=== PATIENT | female | born 1960 | race Hispanic/Latino ===

== ENCOUNTER 2017-05-21 18:23 | Emergency (ER) | payer MEDICARE ==
[2017-05-21 18:23] VITALS: BMI 30.4
[2017-05-21 18:27] VITALS: BP 117/83; PULSE 88; RESP 16; TEMP 99.1; O2SAT 99
--- NOTE | 2017-05-21 19:06 | ED PDOC ---
Lower Extremity Pain/Injury Time Seen by Provider: 05/21/17 18:56 Chief Complaint (Nursing): Lower Extremity Problem/Injury Chief Complaint (Provider): Foot pain Additional History Per: Patient Additional Complaint(s): Pt. from [facility] sent [facility] ED for evaluation of "pain in right leg worsened with walking". Pt. admits she fell 5 years ago and her doctor never put a cast on the right leg. Past Medical History Reviewed: Nursing Documentation, Vital Signs Vital Signs: Last Vital Signs Temp 99.1 F 05/21/17 18:23 Pulse 88 05/21/17 18:23 Resp 16 05/21/17 18:23 BP 117/83 05/21/17 18:23 Pulse Ox 99 05/21/17 18:23 - Medical History PMH: Depression, GERD, Paranoia, Schizophrenia, Seizures Denies: Diabetes, Hepatitis, HIV, HTN, Sexually Transmitted Disease - Family History Family History: States: Unknown Family Hx - Home Medications Home Medications: Ambulatory Orders Medication Instructions Recorded Benztropine [Cogentin] 1 mg PO Q12H 07/13/16 Docusate [Colace] 100 mg PO DAILY PRN 07/13/16 Ergocalciferol (Vitamin D2) 50,000 unit PO SAT 07/13/16 [Vitamin D2] Famotidine [Pepcid] 20 mg PO HS 07/13/16 Gabapentin [Neurontin] 300 mg PO BID 07/13/16 Olanzapine [Zyprexa] 5 mg PO HS 07/13/16 Olanzapine [Zyprexa] 20 mg PO HS 07/13/16 Phenytoin Sodium Extended 300 mg PO HS 07/13/16 [Phenytoin Sodium Extended] amLODIPine [Norvasc] 2.5 mg PO DAILY 07/13/16 clonazePAM [Klonopin] 0.5 mg PO HS 07/13/16 clonazePAM [Klonopin] 1 mg PO Q12H 07/13/16 fluPHENAZine [Prolixin] 20 mg PO Q12H 07/13/16 Ibuprofen [Motrin] 600 mg PO Q6 #20 tab 05/21/17 - Allergies Allergies/Adverse Reactions: Allergies Allergy/AdvReac Type Severity Reaction Status Date / Time No Known Allergies Allergy Verified 05/12/16 18:21 Review of Systems ROS Statement: Except As Marked, All Systems Reviewed And Found Negative Musculoskeletal: Positive for: Foot Pain Physical Exam - Reviewed Nursing Documentation Reviewed: Yes Vital Signs Reviewed: Yes - Physical Exam Appears: Positive for: Well, Non-toxic, No Acute Distress Head Exam: Positive for: ATRAUMATIC, NORMAL INSPECTION, NORMOCEPHALIC Skin: Positive for: Normal Color, Warm, DRY Eye Exam: Positive for: EOMI, Normal appearance, PERRL ENT: Positive for: Normal ENT Inspection Neck: Positive for: Normal, Painless ROM Cardiovascular/Chest: Positive for: Regular Rate, Rhythm Respiratory: Positive for: CNT, Normal Breath Sounds Gastrointestinal/Abdominal: Positive for: Normal Exam, Bowel Sounds, Soft Back: Positive for: Normal Inspection Extremity: Positive for: Normal ROM Neurologic/Psych: Positive for: Alert, Oriented - ECG O2 Sat by Pulse Oximetry: 99 Medical Decision Making Medical Decision Making: Motrin Po administered XR: NAD, as read by AUBRIE Pt placed in zainab wrap and surgical shoe by job specification writer. Disposition - Clinical Impression Clinical Impression: Foot pain, Heel spur - Patient ED Disposition Is Patient to be Admitted: No - Disposition Referrals: Podiatry Clinic [Outside] Disposition: Routine/Home Disposition Time: 19:15 Condition: STABLE Prescriptions: Ibuprofen [Motrin] 600 mg PO Q6 #20 tab Instructions: Arthralgia (ED) Forms: [email or web address] (Greenlandic)
--- NOTE | 2017-05-22 14:29 | RAD ---
PROCEDURE: Right Foot Radiographs. HISTORY: Pain. No history of recent/ related trauma provided COMPARISON: None. FINDINGS: BONES: Normal. No fracture. JOINTS: No significant abnormalities. SOFT TISSUES: Normal. OTHER FINDINGS: None. IMPRESSION: No significant or acute findings to account for/ related to the clinical presentation.
== END 2017-05-21 20:38 | disposition home or self-care (01) ==
LOC: H.ER 18:23
DX: M77.31 Calcaneal spur, right foot (principal); M79.671 Pain in right foot

== ENCOUNTER 2017-09-08 17:30 | Emergency (ER) | payer MEDICARE ==
[2017-09-08 17:31] VITALS: BMI 30.4
[2017-09-08 17:36] VITALS: BP 148/107; PULSE 103; RESP 16; TEMP 98.8; O2SAT 99
--- NOTE | 2017-09-08 18:17 | ED PDOC ---
Upper Extremity Pain/Injury Time Seen by Provider: 09/08/17 17:40 Chief Complaint (Nursing): Upper Extremity Problem/Injury Chief Complaint (Provider): Left Arm Pain History Per: Patient History/Exam Limitations: no limitations Onset/Duration Of Symptoms: Days (x1 month) Current Symptoms Are (Timing): Still Present Additional Complaint(s): 57 year old female, with no significant past medical history, who presents to the ED complaining of left arm pain x1 month. Patient states she feels electricity in her hand that radiates up. States she recently saw her PMD who told her theres nothing to do about it. Denies trauma, weakness, numbness, chest pain, shortness of breath, or shoulder pain. PMD: Provider TABATHA Past Medical History Reviewed: Historical Data, Nursing Documentation, Vital Signs Vital Signs: Last Vital Signs Temp 98.8 F 09/08/17 17:34 Pulse 103 H 09/08/17 17:34 Resp 16 09/08/17 17:34 BP 148/107 H 09/08/17 17:34 Pulse Ox 99 09/08/17 17:34 - Medical History PMH: Depression, GERD, Paranoia, Schizophrenia, Seizures Denies: Diabetes, Hepatitis, HIV, HTN, Chronic Kidney Disease, Sexually Transmitted Disease - Surgical History Surgical History: No Surg Hx - Family History Family History: States: Unknown Family Hx - Home Medications Home Medications: Ambulatory Orders Medication Instructions Recorded Benztropine [Cogentin] 1 mg PO Q12H 07/13/16 Docusate [Colace] 100 mg PO DAILY PRN 07/13/16 Ergocalciferol (Vitamin D2) 50,000 unit PO SAT 07/13/16 [Vitamin D2] Famotidine [Pepcid] 20 mg PO HS 07/13/16 Gabapentin [Neurontin] 300 mg PO BID 07/13/16 Olanzapine [Zyprexa] 5 mg PO HS 07/13/16 Olanzapine [Zyprexa] 20 mg PO HS 07/13/16 Phenytoin Sodium Extended 300 mg PO HS 07/13/16 [Phenytoin Sodium Extended] amLODIPine [Norvasc] 2.5 mg PO DAILY 07/13/16 clonazePAM [Klonopin] 0.5 mg PO HS 07/13/16 clonazePAM [Klonopin] 1 mg PO Q12H 11/11/16 fluPHENAZine [Prolixin] 20 mg PO Q12H 07/13/16 Ibuprofen [Motrin] 600 mg PO Q6 #20 tab 05/21/17 Naproxen [Naprosyn] 500 mg PO BID PRN #15 tablet 09/08/17 - Allergies Allergies/Adverse Reactions: Allergies Allergy/AdvReac Type Severity Reaction Status Date / Time No Known Allergies Allergy Verified 09/08/17 17:34 Review of Systems ROS Statement: Except As Marked, All Systems Reviewed And Found Negative Cardiovascular: Negative for: Chest Pain Respiratory: Negative for: Shortness of Breath Musculoskeletal: Positive for: Arm Pain (left). Negative for: Shoulder Pain Neurological: Negative for: Weakness, Numbness Physical Exam - Reviewed Nursing Documentation Reviewed: Yes Vital Signs Reviewed: Yes - Physical Exam Appears: Positive for: Well, Non-toxic, No Acute Distress Head Exam: Positive for: ATRAUMATIC, NORMAL INSPECTION, NORMOCEPHALIC Skin: Positive for: Normal Color, Warm, Dry. Negative for: Rash Eye Exam: Positive for: EOMI, Normal appearance, PERRL Neck: Positive for: Normal, Painless ROM, Supple Cardiovascular/Chest: Positive for: Regular Rate, Rhythm. Negative for: Murmur Respiratory: Positive for: Normal Breath Sounds. Negative for: Respiratory Distress Back: Positive for: Normal Inspection. Negative for: L CVA Tenderness, R CVA Tenderness, Vertebral Tenderness Extremity: Positive for: Normal ROM, Tenderness (Mid upper arm down to hand), Capillary Refill (<2 sec), Other (Left arm has no erythema, no induration, no lesions). Negative for: Deformity, Swelling (left arm) Neurologic/Psych: Positive for: Alert, Oriented. Negative for: Motor/Sensory Deficits - ECG O2 Sat by Pulse Oximetry: 99 (RA) Pulse Ox Interpretation: Normal Medical Decision Making Medical Decision Making: Time: 17:43 Initial Impression: Chronic arm pain Plan: --EKG --Naproxen 500 mg PO --Reevaluation --Upon review of old notes, patient was here 07/13/16 for the exact same symptoms. Scribe Attestation: Documented by Carmelo Philip, acting as a scribe for Joselin Webster MD. Provider Scribe Attestation: All medical record entries made by the Scribe were at my direction and personally dictated by me. I have reviewed the chart and agree that the record accurately reflects my personal performance of the history, physical exam, medical decision making, and the department course for this patient. I have also personally directed, reviewed, and agree with the discharge instructions and disposition. Disposition - Clinical Impression Clinical Impression: Chronic arm pain - Disposition Referrals: Dolly Newsome MD [Family Provider] - Disposition: Routine/Home Disposition Time: 20:09 Condition: STABLE Prescriptions: Naproxen [Naprosyn] 500 mg PO BID PRN #15 tablet PRN Reason: Pain, Moderate (4-7) Instructions: Arm Pain (ED) Forms: [employer] (Hungarian)
[2017-09-08] MEDS ORDERED: Naproxen 500 MG TAB PO STA (18:22)
[2017-09-08] MEDS ORDERED: Naproxen 500 MG TAB PO ONE (19:30)
--- NOTE | 2017-09-09 08:16 | CARD ---
APPROVED REPORT EKG Measurement Heart [id number] <Conclusion> Normal sinus rhythm Normal ECG
== END 2017-09-08 20:51 | disposition home or self-care (01) ==
LOC: H.ER 17:30
DX: M79.602 Pain in left arm (principal); F20.9 Schizophrenia, unspecified; F32.9 Major depressive disorder, single episode, unspecified; K21.9 Gastro-esophageal reflux disease without esophagitis

== ENCOUNTER 2017-09-14 23:31 | Emergency (ER) | payer MEDICARE ==
[2017-09-14 23:32] VITALS: BMI 30.4
[2017-09-15 00:03] VITALS: RESP 18; TEMP 98.3
--- NOTE | 2017-09-15 02:16 | ED PDOC ---
HPI: Psych/Substance Abuse Time Seen by Provider: 09/14/17 23:55 Chief Complaint (Nursing): Psychiatric Evaluation Chief Complaint (Provider): Crisis Evaluation History Per: Patient History/Exam Limitations: no limitations Onset/Duration Of Symptoms: Hrs (1 hour to arrival) Current Symptoms Are (Timing): Still Present Additional Complaint(s): 57 y/o female, brought in by EMS, presents to the ED at the referral of her [facility] for suicidal ideation, onset of 1 hour prior to arrival. Patient denies suicidal ideation, but thinks that she will from the pain. Patient complains of multiple somatic issues of arm and leg pain, but states that shes had this pain for many years. Of note, chart reviewed showed multiple previous visits with a similar pattern of behavior. Past Medical History Reviewed: Historical Data, Nursing Documentation, Vital Signs Vital Signs: Last Vital Signs Temp 98.3 F 09/14/17 23:56 Pulse 122 H 09/14/17 23:56 Resp 18 09/14/17 23:56 BP 119/82 09/14/17 23:56 Pulse Ox 97 09/14/17 23:56 - Medical History PMH: Depression, GERD, Paranoia, Schizophrenia, Seizures Denies: Diabetes, Hepatitis, HIV, HTN, Chronic Kidney Disease, Sexually Transmitted Disease - Surgical History Surgical History: No Surg Hx - Family History Family History: States: Unknown Family Hx - Living Arrangements Living Arrangements: Alone (lives in a [facility]) - Social History Current smoker - smoking cessation education provided: No Ex-Smoker (has not smoked in the last 12 months): No Alcohol: None Drugs: Denies - Home Medications Home Medications: Ambulatory Orders Medication Instructions Recorded Benztropine [Cogentin] 1 mg PO Q12H 07/13/16 Docusate [Colace] 100 mg PO DAILY PRN 07/13/16 Ergocalciferol (Vitamin D2) 50,000 unit PO SAT 07/13/16 [Vitamin D2] Famotidine [Pepcid] 20 mg PO HS 07/13/16 Gabapentin [Neurontin] 300 mg PO BID 07/13/16 Olanzapine [Zyprexa] 5 mg PO HS 07/13/16 Olanzapine [Zyprexa] 20 mg PO HS 07/13/16 Phenytoin Sodium Extended 300 mg PO HS 07/13/16 [Phenytoin Sodium Extended] amLODIPine [Norvasc] 2.5 mg PO DAILY 07/13/16 clonazePAM [Klonopin] 0.5 mg PO HS 07/13/16 clonazePAM [Klonopin] 1 mg PO Q12H 07/13/16 fluPHENAZine [Prolixin] 20 mg PO Q12H 07/13/16 Ibuprofen [Motrin] 600 mg PO Q6 #20 tab 05/21/17 Naproxen [Naprosyn] 500 mg PO BID PRN #15 tablet 09/08/17 - Allergies Allergies/Adverse Reactions: Allergies Allergy/AdvReac Type Severity Reaction Status Date / Time No Known Allergies Allergy Verified 09/08/17 17:34 Review of Systems ROS Statement: Except As Marked, All Systems Reviewed And Found Negative Constitutional: Negative for: Fever Musculoskeletal: Positive for: Arm Pain, Leg Pain Psych: Negative for: Suicidal ideation Physical Exam - Reviewed Nursing Documentation Reviewed: Yes Vital Signs Reviewed: Yes - Physical Exam Appears: Positive for: Non-toxic, No Acute Distress Head Exam: Positive for: ATRAUMATIC Skin: Positive for: Normal Color, Warm, Dry Eye Exam: Positive for: Normal appearance, EOMI, PERRL ENT: Positive for: Normal ENT Inspection Neck: Positive for: Normal, Painless ROM, Supple Cardiovascular/Chest: Positive for: Regular Rate, Rhythm. Negative for: Murmur Respiratory: Positive for: Normal Breath Sounds. Negative for: Respiratory Distress Gastrointestinal/Abdominal: Positive for: Normal Exam, Soft. Negative for: Tenderness Back: Positive for: Normal Inspection Extremity: Positive for: Normal ROM. Negative for: Pedal Edema, Deformity Neurologic/Psych: Positive for: Alert, Oriented, Mood/Affect (anxious). Negative for: Motor/Sensory Deficits - ECG O2 Sat by Pulse Oximetry: 97 (RA) Pulse Ox Interpretation: Normal Medical Decision Making Medical Decision Making: Time: --00:04 Impression: --57 y/o female referred for crisis evaluation with multiple somatic complaints Plan: --Crisis Evaluation Reassess - Patient evaluated by crisis and deemed stable for discharge back to her [facility]. Scribe Attestation: Documented by Fili Hanna acting as a scribe for Austyn Astudillo MD. Disposition - Clinical Impression Clinical Impression: Schizoaffective disorder - Patient ED Disposition Is Patient to be Admitted: No - Disposition Disposition: Routine/Home Disposition Time: Condition: IMPROVED Instructions: Schizoaffective Disorder (ED) Forms: [employer] (Uzbek) Print Language: JAPANESE
[2017-09-15 02:43] VITALS: BP 139/82; PULSE 88; O2SAT 98
== END 2017-09-15 03:11 | disposition home or self-care (01) ==
LOC: H.ER 23:31
DX: F25.9 Schizoaffective disorder, unspecified (principal); K21.9 Gastro-esophageal reflux disease without esophagitis